=== PATIENT | female | born 1955 | race Two or more races ===

== ENCOUNTER 2023-09-08 19:07 | Inpatient (IN) | payer BC, SELFPAY ==
[2023-09-08] VITALS (7 sets, daily range): BP systolic 115–151; BP diastolic 56–99; BMI 29.1
[2023-09-08 11:13] LABS: COVID-19 Antigen Negative (Negative)
--- NOTE | 2023-09-08 12:53 | ED.GENMED ---
History of Present Illness
General
Chief Complaint: Breathing Problem
Source: patient
Exam Limitations: none
Time Seen by Provider: 09/08/23 12:24
Nursing documentation reviewed up to this point in time: agreed with
Travel History
Have you had any contact with someone who has COVID-19?: No
Do you have any symptoms of coronavirus? Fever > 100 degrees, chills, cough, shortness of breath, sore throat, loss of taste or smell, muscle aches, or headache?: No
History of Present Illness
History of Present Illness:
Patient is a 68-year-old female with past medical history of asthma who presents to the ER for evaluation. Patient started with cough several days ago and shortness of breath. She reports the cough is so bad she can barely eat or drink with it.
She has been using her albuterol nebulizers without relief. She can hear herself wheezing. She had an upper respiratory tract infection a month ago but this feels different and worse. She denies any lower extremity swelling. She denies any
history of PE DVT but does admit there is a family history of clotting disorder. She presents with a low-grade temperature here but reports she has not had fever at home for past several days. She denies any associated chest pain.
Review of Systems
Review of Systems
Allergies reviewed?: Yes
All Other Systems: ROS reviewed and negative except as documented in HPI and ROS
Constitutional: Reports no symptoms; Denies fever, fatigue or chills
EENT: Reports no symptoms
Respiratory: Reports cough and trouble breathing
Cardiac: Reports no symptoms; Denies chest pain or palpitations
ABD/GI: Reports no symptoms
: Reports no symptoms
Musculoskeletal: Reports no symptoms
Skin: Reports no symptoms
Neurological: Reports no symptoms
Hematologic/Lymphatic: Reports no symptoms
Psychiatric: Reports no symptoms
Phy Exam
General Physical Exam
General Presentation: no apparent distress
General age: appears stated age
General Skin: warm and dry
General Habitus: normal
General Mental: alert
General Hydration: dry mucous membranes
Cardiovascular Exam
Cardiovascular Exam: regular rate/rhythm, no murmur and normal peripheral pulses
Pulmonary Exam
Pulmonary Exam: no respiratory distress and other (+ audible cough , exp wheezing throughout )
Neurological Exam
Neurological Exam: alert and oriented x3
Musculoskeletal Exam
Musculoskeletal Exam: full ROM and other ( no l/e sweling )
Skin Exam
Skin Exam: normal color and warm/dry
Psychiatric Exam
Psychiatric Exam: normal mood/affect
Scores
Heart Failure Risk
Heart Failure Risk Score: Not Applicable
Course
Orders/Labs/Results
Orders:
Orders
09/08/23 10:41
Electrocardiogram (*1) Urgent
Reason for Study: Shortness of Breath
EKG- Treatment ONCE
CXR2 [CR Chest - 2 Views ] Urgent
Comment:
Reason For Exam: cough/low grade temp/sob
09/08/23 10:50
COVID-19 Antigen Urgent
Source: Nasal Swab
Influenza A+B Rapid Molecular Urgent
LUDY Source: Nasal Swab
Specimen Description:
09/08/23 12:45
Complete Blood Count/With Diff Urgent
Comprehensive Metabolic Panel Urgent
NT-proBNP Urgent
Comment: ADD
09/08/23 12:50
D-Dimer Urgent
09/08/23 12:52
Add On- LAB Urgent
Tests Added?: cardiac BNP
Albuterol Sulfate [Ventolin Nebules] 7.5 mg INH R NOW STA
Dexamethasone Sod Phosphate [Decadron] 10 mg IV NOW STA
Ipratropium Nebs [Atrovent Nebules] 1 mg INH R NOW STA
09/08/23 14:08
CT Chest Pe Study Urgent
Comment:
Reason For Exam: sob
09/08/23 14:45
Diphenhydramine [Benadryl] 50 mg IV NOW STA
Hydrocortisone Sod Succinate [Solu-Cortef] 200 mg IV NOW STA
09/08/23 17:33
Albuterol Nebs [Ventolin Nebules] 2.5 mg INH R NOW STA
Abnormal Lab Results
09/08/23 09/08/23
12:45 12:50
MCH 31.5 H pg
(27.0-31.0)
MPV 10.6 H fL
(7.4-10.4)
D-Dimer 0.78 H ug/mlFEU
(0.00-0.50)
Chloride 109 H mmol/L
(98-107)
Carbon Dioxide 21 L mmol/L
(22-30)
BUN 18 H mg/dl
(7-17)
09/08/23 12:45
09/08/23 12:45
Vital Signs
Initial and Last Documented VS:
Initial Vital Signs
Temp Pulse Resp BP Pulse Ox
100.6 F H 72 26 123/99 100
09/08/23 10:30 09/08/23 10:30 09/08/23 10:30 09/08/23 10:30 09/08/23 10:30
Last Documented Vital Signs
Temp Pulse Resp BP Pulse Ox
100.6 F H 72 26 144/85 96
09/08/23 10:30 09/08/23 10:30 09/08/23 10:30 09/08/23 16:00 09/08/23 16:15
MDM/Problems Addressed
Differential Diagnosis Includes:
Not limited to acute asthma exacerbation, URI, pneumonia, bronchitis, PE, CHF
MDM/Problems Addressed:
Patient is a 68-year-old female with history of asthma who presents to the ER complaining of shortness of breath for the past several days with cough and wheezing. Patient has used her nebs at home but continues to feel short of breath. She denies
any fevers but was found to be febrile here in the ER with a low-grade temp of 100.6. She had audible wheezing on exam. Patient very tachypneic on arrival was given an hour-long neb and steroids continues to be tachypneic. D-dimer was elevated
patient was prepped for CAT scan as she reports contrast allergy. She is negative for PE there is a branch nodular opacity within the right posterior upper lobe measuring 8 mm likely infectious or inflammatory nature consider repeat CT in 6 to 12
months. Reexam patient presents still very tachypneic conversation and ambulation will give second neb but will need admission for continued nebs steroids and observation. Patient with no history of CAD no history of congestive heart failure BNP
level 135 no obvious lower extremity swelling.
Chronic conditions affecting care:
Asthma
*Radiology
Radiology exam reviewed: radiology read reviewed
*Pulse Oximetry
Patient hypoxic: no
*Packaging Machine Supplies Distributor Interpretation
Rate: normal
Interpretation: normal
Heart Rate: 74
Rhythm: sinus
*Critical Care Note
Total Time (30-74mins, 75-104mins- exclusive of procedures): Not Applicable
ED Attending Note
-
Portions of this chart may have been created with voice recognition software.� Occasional wrong word or��sound alike� substitutions may have occurred due to the inherent limitations of voice recognition software.
Discharge Plan
Departure
Patient Disposition: Admit
Date of Disposition: 09/08/23
Time of Disposition: 17:42
Admit to: Med/Surg
Admit to doctor: Bryon
Presentation/result/management discussed w/ accepting MD/DO: Hospitalist
Patient with high blood pressure during this ER visit?: Yes
Condition: Fair
Covid-19: Not Applicable
Discharge Problem:
Asthma exacerbation, Bronchitis, Acute dyspnea
Referrals:
Jen Sapp MD [Family Provider] -
Interventions
Interventions:
*Risk Screen - Suicide Last Done: 09/08/23 12:15
*Neglect/Abuse Screening Last Done: 09/08/23 12:15
*ED COVID-19 Vaccine History Last Done: 09/08/23 10:36
ED- Cardiac Assessment Last Done: 09/08/23 12:15
ED- Pulmonary Assessment Last Done: 09/08/23 12:15
Discharge Date and Time
Print Language: ESTONIAN
[2023-09-08] MEDS: DECADRON 10 MG IV (12:58)
[2023-09-08] MEDS: VENTOLIN NEBULES 7.5 MG INH (12:58)
[2023-09-08 12:59] LABS: % Basophils 0.5 % (0-2); % Eosinophils 3.4 % (0-6); % Immature Granulocytes 0.2 % (0-0.5); % Lymphocytes 27.9 % (20.5-51.1); % Monocytes 6.3 % (1.7-9.3); % Neutrophils 61.7 % (42.2-75.2); Absolute Eosinophils 0.2 10^3/uL (0-0.7); Absolute Lymphocytes 1.6 10^3/uL (1.2-3.4); Absolute Monocytes 0.4 10^3/uL (0.1-0.6); Absolute Neutrophils 3.4 10^3/uL (1.4-6.5); Hematocrit 39.7 % (37.0-47.0); Hemoglobin 13.6 g/dL (12.0-16.0); Mean Corp Hgb Conc. 34.3 g/dL (33.0-37.0); Mean Corpuscular Hgb 31.5 pg (27.0-31.0); Mean Corpuscular Volume 91.9 fL (81.0-99.0); Mean Platelet Volume 10.6 fL (7.4-10.4); Nucleated Red Blood Cells % 0 %; Platelet Count 174 10^3/uL (130-400); Red Blood Cell Count 4.32 10^6/uL (4.20-5.40); Red Cell Dist. Width 13.4 % (11.5-14.5); White Blood Cell Count 5.6 10^3/uL (4.8-10.8)
[2023-09-08] MEDS: ATROVENT NEBULES 1 MG INH (12:59)
[2023-09-08 13:10] LABS: ALT (SGPT) 22 U/L (0-35); AST (SGOT) 24 U/L (14-36); Albumin 4.2 g/dl (3.5-5.0); Alkaline Phosphatase 119 U/L (38-126); Blood Urea Nitrogen 18 mg/dl (7-17); Calcium 9.5 mg/dl (8.4-10.2); Carbon Dioxide 21 mmol/L (22-30); Chloride 109 mmol/L (98-107); Glucose 92 mg/dl (70-99); Sodium 137 mmol/L (135-145); Total Protein 7.2 g/dl (6.3-8.2); eGFR > 60.00
[2023-09-08 13:13] LABS: D-Dimer 0.78 ug/mlFEU (0.00-0.50)
[2023-09-08 13:55] LABS: NT-proBNP 135 pg/ml
[2023-09-08] MEDS: BENADRYL 50 MG IV (15:03)
[2023-09-08] MEDS: VENTOLIN NEBULES 2.5 MG INH ×2 (17:54→20:23)
--- NOTE | 2023-09-08 17:59 | HPS.HSE ---
Family Physician
-
Family Physician: Jen Sapp
Chief Complaint
-
Cough, shortness of breath, wheezing
History of Present Illness
68-year-old female with a history of mild intermittent asthma here with complaints of cough wheezing and shortness of breath that started on Friday. Lives alone, denies any sick contacts. Does have seasonal allergies. Cough is productive of clear
phlegm.
Medical History
Past Medical History
Past Medical History: Reports Other
Additional Past Medical History:
GERD
Asthma
Nephrolithiasis
Past Surgical History: Reports Cholecystectomy
Social History
Tobacco: Non-smoker
Alcohol: Occasional
Drug: None
Personal: Single
Living: Alone
Family History
Family History: Not pertinent
Allergies / Home Medications
Allergies reflects when Allergies were last updated in Interview.
Home Medications with original date entered in Interview
Allergy/Medication List:
Allergies
Allergy/AdvReac Type Severity Reaction Status Date / Time
.local anesthetic Allergy Anaphylaxis Uncoded 09/08/23 10:39
Albuterol MDI as needed
Omeprazole 40 mg p.o. daily
Neurontin 300 mg in the morning, 400 mg in the evening
Zyrtec 10 mg daily
Review of Systems
-
History Source: Patient
A 12 point ROS was completed and negative except as noted: Yes
Respiratory: Reports Cough, Trouble Breathing and Other (Wheezing)
Physical Exam
Vital Signs
Vital Signs
Temp Pulse Resp BP Pulse Ox
100.6 F H 72 26 144/85 96
09/08/23 10:30 09/08/23 10:30 09/08/23 10:30 09/08/23 16:00 09/08/23 16:15
Physical Exam
General: Well Developed, Well Nourished, No Apparent Distress and Comfortable
HEENT: NormoCephalic, Anicteric and Moist mucous membranes
Respiratory: Wheezes and Rhonchi
Cardiac: S1/S2 and Regular Rhythm
GI: Soft, Non Tender and Non Distended
Musculoskeletal: No Clubbing, No Cyanosis and No Edema
Skin: Warm and Dry
Neuro: AO x 3
Hematologic/Lymphatic: No Lymphadenopathy
Psych: Calm
Laboratory Results
-
09/08/23 12:45
09/08/23 12:45
Laboratory Results
Total Bilirubin 1.0 mg/dl (0.2-1.3) 09/08/23 12:45
AST 24 U/L (14-36) 09/08/23 12:45
ALT 22 U/L (0-35) 09/08/23 12:45
Alkaline Phosphatase 119 U/L (38-126) 09/08/23 12:45
Impression/Plan
-
Acute asthma exacerbation -baseline mild intermittent asthma. Her last episode of asthma flare was more than a year ago. Admit to MedSurg. Continue inhalers. Continue steroids. Add Mucinex, Acapella.
Chest x-ray clear. CT chest negative for pulmonary embolism.
Low-grade fever noted. Suspect viral syndrome. White blood cell count normal. No signs or symptoms of sepsis. COVID and influenza negative.
She does not see a brass burnisher. Her primary care doctor manages the asthma.
Incidental right upper lobe lung nodule -[address] chest. Will need repeat CT in 6 to 12 months.
History of nephrolithiasis
GERD
Seasonal allergies -on Zyrtec. Recommend nasal steroids on discharge. Discussed with patient.
Full code
--- NOTE | 2023-09-08 20:08 | PTCARENOTE ---
Patient received from the ER via stretcher. AAOx3, VSS. 96% on RA. SOB with exertion. Patient stood and pivoted onto the bed due to SOB. Patient given boxed lunch, reported some nausea but no vomiting. Patient oriented to the room, call nbell is
within reach.
[2023-09-08] MEDS: PROTONIX 40 MG PO (20:58)
[2023-09-08] MEDS: MUCINEX 600 MG PO (20:58)
[2023-09-08] MEDS: ZYRTEC 10 MG PO (20:58)
[2023-09-08] MEDS: NEURONTIN 400 MG PO (21:01)
[2023-09-08] MEDS: TYLENOL 650 MG PO (21:01)
[2023-09-08] MEDS: ZOFRAN 4 MG IV (22:38)
[2023-09-09] MEDS: ProAIR HFA INHALER 2 PUFF INH (02:42)
[2023-09-09] MEDS: DECADRON 4 MG IV ×3 (05:13→21:40)
[2023-09-09] MEDS: VENTOLIN NEBULES 2.5 MG INH ×4 (07:16→19:50)
[2023-09-09 07:50] VITALS: BP 128/64
[2023-09-09] MEDS: NEURONTIN 300 MG PO (07:59)
[2023-09-09] MEDS: MUCINEX 600 MG PO ×2 (07:59→20:04)
--- NOTE | 2023-09-09 09:47 | W.PN.HOSP.TC ---
Today's Communication/Plan
-
Continue current care
Assessment / Plan
Assessment / Plan
Gen-AAOx3, NAD
HEENT-NC, AT, anicteric, clear oral mm
Neck-supple
CV-reg, no M, +S1/S2
Lungs-bilateral expiratory wheezing
Abd-soft, NT, ND
Ext-no edema
Musculoskeletal-no cyanosis, clubbing
Skin-warm and dry
Neuro-grossly non-focal
Psych-calm, cooperative
Acute asthma exacerbation -baseline mild intermittent asthma. Still with significant wheezing. Continue steroids, nebs, Acapella, Mucinex.
Incidental right upper lobe lung nodule -[address] chest. Will need repeat CT in 6 to 12 months.
History of nephrolithiasis
GERD
Seasonal allergies -on Zyrtec. Recommend nasal steroids on discharge. Discussed with patient.
Full code
Anticipated Discharge: 24 - 48 hours
Subjective/Interval History
-
Date of Service: September 09, 2023
Patient seen and examined. Complaining of cough, wheezing, shortness of breath.
Objective Data
-
Vital Signs:
Vital Signs
Temp Pulse Resp BP Pulse Ox
97.9 F 86 18 128/64 98
09/09/23 07:50 09/09/23 07:50 09/09/23 07:50 09/09/23 07:50 09/09/23 09:43
I&O
09/08/23 09/09/23 09/10/23
06:59 06:59 06:59
Intake Total 480 / 480
Balance 480 / 480
Review of Systems
-
History Source: Patient
All other systems: Reviewed and negative
[2023-09-09 10:31] LABS: Glucose - Point of Care 140 mg/dl (70-99)
--- NOTE | 2023-09-09 10:36 | CM ---
Patient seen bedside, initial assessment completed. Patient reports she lives independently in a one story home, no steps to enter. Patient denies the use of DME and reports being independent with ADLS/IADLs. Patient reports VN in the past, denies
SNF. Patient confirms PCP Jen Sapp, [facility] in [place]. Per Hospitalist note, anticipated discharge 24-48 hours. CM will continue to follow for discharge planning needs.
Plan; home no needs likely.
[2023-09-09 15:18] VITALS: BP 124/60
[2023-09-09] MEDS: ROBITUSSIN DM 10 ML PO (16:51)
[2023-09-09] MEDS: TESSALON PERLES 100 MG PO (18:41)
[2023-09-09] MEDS: NEURONTIN 400 MG PO (20:04)
[2023-09-09] MEDS: ZYRTEC 10 MG PO (20:04)
[2023-09-09] MEDS: PROTONIX 40 MG PO (20:04)
[2023-09-09 23:08] VITALS: BP 121/67
[2023-09-10] MEDS: DECADRON 4 MG IV ×3 (05:22→21:23)
[2023-09-10 07:30] VITALS: BP 148/83
[2023-09-10] MEDS: VENTOLIN NEBULES 2.5 MG INH ×4 (07:51→20:21)
[2023-09-10] MEDS: MUCINEX 600 MG PO ×2 (07:58→21:23)
[2023-09-10] MEDS: NEURONTIN 300 MG PO (07:58)
--- NOTE | 2023-09-10 10:22 | W.PN.HOSP.TC ---
Today's Communication/Plan
-
Major nasal spray
Assessment / Plan
Assessment / Plan
Gen-AAOx3, NAD
HEENT-NC, AT, anicteric, clear oral mm
Neck-supple
CV-reg, no M, +S1/S2
Lungs-bilateral expiratory wheezing
Abd-soft, NT, ND
Ext-no edema
Musculoskeletal-no cyanosis, clubbing
Skin-warm and dry
Neuro-grossly non-focal
Psych-calm, cooperative
Acute asthma exacerbation -baseline mild intermittent asthma. Still with significant wheezing. Continue steroids, nebs, Acapella, Mucinex. Add Major nasal spray for nasal congestion.
Incidental right upper lobe lung nodule -[address] chest. Will need repeat CT in 6 to 12 months.
History of nephrolithiasis
GERD
Seasonal allergies -on Zyrtec. Recommend nasal steroids on discharge. Discussed with patient.
Full code
Anticipated Discharge: > 48 hours
Subjective/Interval History
-
Date of Service: September 10, 2023
Patient seen and examined. Still with significant cough and wheezing. Episode of vomiting last night after coughing. Denies nausea currently.
Objective Data
-
Vital Signs:
Vital Signs
Temp Pulse Resp BP Pulse Ox
98 F 70 16 148/83 96
09/10/23 07:30 09/10/23 07:54 09/10/23 07:54 09/10/23 07:30 09/10/23 07:54
I&O
09/09/23 09/10/23 09/11/23
06:59 06:59 06:59
Intake Total 480 / 480 960 / 960
Balance 480 / 480 960 / 960
Review of Systems
-
History Source: Patient
All other systems: Reviewed and negative
--- NOTE | 2023-09-10 11:28 | CM ---
CM reviewed chart, per Hospitalist notes, anticipated discharge <48 hours. Patient seen bedside, reports no new concerns to CM. CM will continue to follow for discharge planning needs.
Plan; home no needs anticipated.
[2023-09-10 15:30] VITALS: BP 134/61
--- NOTE | 2023-09-10 20:39 | RESPNOTE ---
pt was c/o feeling flush and sweating post neb tx. saturation 96% on room air, pt stated throat anf chest feel fine. HR 80, RR 15 BS diminished bilat. CAT moe aware, and at bedside at this time
[2023-09-10 20:40] VITALS: BP 134/74
[2023-09-10 20:43] LABS: Glucose - Point of Care 165 mg/dl (70-99)
--- NOTE | 2023-09-10 21:09 | PTCARENOTE ---
Pt stated after neb treatment she was feeling flushed and lightheaded. Pt VSS and blood sugar 165. Pt stated she was concerned about tracking blood sugars from steroids. RN made JOURNEYMAN ELECTRICIAN aware- ordered Accucheck.
[2023-09-10] MEDS: NEURONTIN 400 MG PO (21:23)
[2023-09-10] MEDS: ZYRTEC 10 MG PO (21:23)
[2023-09-10] MEDS: PROTONIX 40 MG PO (21:25)
[2023-09-10 23:57] VITALS: BP 126/53
[2023-09-11] MEDS: DECADRON 4 MG IV ×3 (05:07→21:43)
[2023-09-11 07:26] LABS: Glucose - Point of Care 105 mg/dl (70-99)
[2023-09-11 07:30] VITALS: BP 148/84
[2023-09-11] MEDS: VENTOLIN NEBULES 2.5 MG INH ×4 (07:31→19:39)
[2023-09-11] MEDS: MUCINEX 600 MG PO ×2 (08:14→21:43)
[2023-09-11] MEDS: NEURONTIN 300 MG PO (08:14)
[2023-09-11 09:25] LABS: Urine Albumin Negative (Neg - Trace); Urine Bilirubin Negative (Negative); Urine Character Clear (Clear); Urine Color Yellow; Urine Glucose Negative (Negative); Urine Ketone Negative (Negative); Urine Leukocyte Negative (Negative); Urine Nitrite Negative (Negative); Urine Occult Blood Negative (Negative); Urine Urobilinogen Negative (Neg - 1+)
[2023-09-11 12:00] LABS: Glucose - Point of Care 127 mg/dl (70-99)
--- NOTE | 2023-09-11 12:01 | W.PN.HOSP.TC ---
Addendum entered and electronically signed by Bill Slater DO 09/11/23 15:04:
Atelectasis is a valid diagnosis
Original Note:
Today's Communication/Plan
-
Continue current care
Assessment / Plan
Assessment / Plan
Gen-AAOx3, NAD
HEENT-NC, AT, anicteric, clear oral mm
Neck-supple
CV-reg, no M, +S1/S2
Lungs-bilateral expiratory wheezing
Abd-soft, NT, ND
Ext-no edema
Musculoskeletal-no cyanosis, clubbing
Skin-warm and dry
Neuro-grossly non-focal
Psych-calm, cooperative
Acute asthma exacerbation -baseline mild intermittent asthma. Still with significant wheezing. Continue steroids, nebs, Acapella, Mucinex. Add Eva nasal spray for nasal congestion.
Incidental right upper lobe lung nodule -[address] chest. Will need repeat CT in 6 to 12 months.
History of nephrolithiasis
GERD
Seasonal allergies -on Zyrtec. Recommend nasal steroids on discharge. Discussed with patient.
Full code
Anticipated Discharge: Within 24 hours
Subjective/Interval History
-
Date of Service: September 11, 2023
Patient seen and examined. Feels slightly better compared to yesterday. Still with cough and wheezing but overall improving. No complaints.
Objective Data
-
Vital Signs:
Vital Signs
Temp Pulse Resp BP Pulse Ox
97.9 F 71 15 148/84 95
09/11/23 07:30 09/11/23 11:05 09/11/23 11:05 09/11/23 07:30 09/11/23 11:05
I&O
09/10/23 09/11/23 09/12/23
06:59 06:59 06:59
Intake Total 960 / 960 1560 / 1560
Balance 960 / 960 1560 / 1560
Review of Systems
-
History Source: Patient
All other systems: Reviewed and negative
--- NOTE | 2023-09-11 13:54 | PN.CDI ---
CDI
- -
CDI:
Physician Documentation Request
Admit Date: 09/08/23 19:07
Dear Doctor Bryon,
Please review the following and provide your response in the progress notes.
Clinical Indicators:
The diagnosis of Atelectasis was included in the signed chest CT 09/07
Additional clinical indicators in the chart include:
Chest CT: ,'Bands of atelectasis/scarring within the lingula and both lower lobes.'
Incentive Spirometry/Acapela ordered in respiratory orders
Please indicate in your progress notes if you are in agreement that the above diagnosis is valid for this patient:
____ - Atelectasis is a valid diagnosis (Please include it in your progress notes)
____ - Atelectasis is not a valid diagnosis for this patient
____ - Other
Use of terms such as suspected, likely, concern for, or probable are acceptable for a diagnosis that is being evaluated, monitored or treated as if it exists and can be coded in the inpatient setting, when documented at the time of discharge.
Thank you,
Lilly Herndon RN
CDI Specialist
[facility]
Please use your independent medical judgment in providing your response.
[2023-09-11 15:30] VITALS: BP 122/63
[2023-09-11 16:29] LABS: Glucose - Point of Care 133 mg/dl (70-99)
[2023-09-11 21:39] LABS: Glucose - Point of Care 137 mg/dl (70-99)
[2023-09-11] MEDS: NEURONTIN 400 MG PO (21:43)
[2023-09-11] MEDS: ZYRTEC 10 MG PO (21:43)
[2023-09-11] MEDS: PROTONIX 40 MG PO (21:43)
[2023-09-11] MEDS: TYLENOL 650 MG PO (21:56)
[2023-09-11 23:06] VITALS: BP 138/74
[2023-09-12] MEDS: DECADRON 4 MG IV ×2 (05:17→12:59)
[2023-09-12 07:16] LABS: Glucose - Point of Care 114 mg/dl (70-99)
[2023-09-12] MEDS: VENTOLIN NEBULES 2.5 MG INH ×2 (07:52→11:46)
[2023-09-12] MEDS: NEURONTIN 300 MG PO (09:05)
[2023-09-12] MEDS: MUCINEX 600 MG PO (09:06)
[2023-09-12 09:12] VITALS: BP 130/83
[2023-09-12 10:26] VITALS: BP 134/69; PULSE 74; O2SAT 98
--- NOTE | 2023-09-12 10:44 | PTOTSP ---
Patient demonstrates safe and independent mobility, no skilled physical therapy needs at this time.
--- NOTE | 2023-09-12 10:46 | W.PN.HOSP.TC ---
Today's Communication/Plan
-
Discharge
Assessment / Plan
Assessment / Plan
Gen-AAOx3, NAD
HEENT-NC, AT, anicteric, clear oral mm
Neck-supple
CV-reg, no M, +S1/S2
Lungs-bilateral expiratory wheezing
Abd-soft, NT, ND
Ext-no edema
Musculoskeletal-no cyanosis, clubbing
Skin-warm and dry
Neuro-grossly non-focal
Psych-calm, cooperative
Acute asthma exacerbation -baseline mild intermittent asthma. Wheezing is improving. Continue steroids, nebs, Acapella, Mucinex. Add [place] nasal spray for nasal congestion. Still with cough and I explained to patient that coughing may take weeks
to months to improve.
Will add Advair on discharge. Recommend outpatient follow-up with PCP and pulmonary. Discussed with patient.
She is comfortable going home today.
Incidental right upper lobe lung nodule -[address] chest. Will need repeat CT in 6 to 12 months. Follow-up with pulmonary. Discussed with patient.
History of nephrolithiasis
GERD
Seasonal allergies -on Zyrtec. Recommend nasal steroids on discharge. Discussed with patient.
Full code
Dispo -medically stable for discharge home today. Outpatient follow-up.
32 minutes spent in discharge process.
Anticipated Discharge: Today
Subjective/Interval History
-
Date of Service: September 12, 2023
Patient seen and examined. Feeling slightly better. Still with cough.
Objective Data
-
Vital Signs:
Vital Signs
Temp Pulse Resp BP Pulse Ox
98.0 F 70 18 130/83 95
09/12/23 09:12 09/12/23 09:12 09/12/23 09:12 09/12/23 09:12 09/12/23 09:12
I&O
09/11/23 09/12/23 09/13/23
06:59 06:59 06:59
Intake Total 1560 / 1560 1140 / 1140
Balance 1560 / 1560 1140 / 1140
Review of Systems
-
History Source: Patient
All other systems: Reviewed and negative
--- NOTE | 2023-09-12 10:57 | W.DS.TRANS ---
DC Summary - Alarm Installation Technician
-
Discharge Instructions:
Discharge Diagnosis/Procedures Acute asthma exacerbation, right upper lobe
pulmonary nodule
Diet Regular
Activity As tolerated
Driving Restrictions As prior to admission
Bathing Restrictions None
Instructions:
Stand-Alone Forms:
Changes to Home Medications: No
Discharge Medications:
DC Medications w/original date entered in [employer]
acetaminophen 500 mg tablet 1,000 mg PO HS Pain 09/08/23
cetirizine 10 mg tablet (Zyrtec) 10 mg PO QPM Allergies 09/08/23
gabapentin 300 mg capsule 300 mg PO DAILY Pain 09/08/23
gabapentin 400 mg capsule 400 mg PO HS Pain 09/08/23
ibuprofen 200 mg capsule 600 mg PO HS Pain 09/08/23
omeprazole 40 mg capsule,delayed release 40 mg PO QPM Gastrointestinal Issue 09/08/23
albuterol sulfate 2.5 mg/3 mL (0.083 %) solution for nebulization 2.5 mg (3 mL) inhalation Q4H PRN shortness of breath or wheezing #90 mL 09/12/23
albuterol sulfate 90 mcg/actuation aerosol inhaler 2 puff inhalation R Q4HPRN PRN SOB #8.5 grams 09/12/23
fluticasone 100 mcg-salmeterol 50 mcg/dose blistr powdr for inhalation (Advair Diskus) 1 inh inhalation BID #60 ea 09/12/23
guaifenesin 600 mg tablet, extended release 12 hr 600 mg PO Q12 #0 tabs 09/12/23
prednisone 10 mg tablet 10 mg PO DIRECTED #45 tabs 09/12/23
Home Medication Changes
Pending Results: No
--- NOTE | 2023-09-12 11:21 | CM ---
Met with patient at bedside
IMM benefit explained; form signed @ [id number]
Plan: discharge to home; no skilled PT needed; niece will provide transport home
--- NOTE | 2023-09-12 11:29 | PTCARENOTE ---
Reviewed discharge instructions with patient. Patient verbalizes understanding of all instructions including medication and follow up appointments needed. Patient will be sent home with a spacer for respiratory treatments. Peripheral IV removed.
Denies questions at this time.
[2023-09-12 12:19] LABS: Glucose - Point of Care 150 mg/dl (70-99)
== END 2023-09-12 15:18 | disposition home or self-care (01) | DRG 202 ==
LOC: 4 EAST ACU 19:07
PROVIDERS: Emergency Medicine; Nurse Practitioner; Nurse Practitioner Family; ADMITTING PHYSICIAN Hospitalist; EMERGENCY PHYSICIAN Emergency Medicine; FAMILY PHYSICIAN Internal Medicine
DX: J45.21 Mild intermittent asthma with (acute) exacerbation (principal); J98.11 Atelectasis; Z11.52 Encounter for screening for COVID-19; J20.9 Acute bronchitis, unspecified; K21.9 Gastro-esophageal reflux disease without esophagitis; R91.1 Solitary pulmonary nodule; B34.9 Viral infection, unspecified
CPT/HCPCS: 71046; 71275; 80053; 81003; 82962; 83880; 85025; 85379; 87502; 87811; 93005; 94640; 96374; 96375; 97162; 99285; Q9967

== ENCOUNTER 2024-03-15 13:51 | Emergency (ER) | payer BC, MEDICARE, SELFPAY ==
[2024-03-15 13:54] VITALS: BP 115/74
[2024-03-15 14:23] LABS: % Basophils 0.8 % (0-2); % Eosinophils 1.5 % (0-6); % Lymphocytes 36.1 % (20.5-51.1); % Monocytes 11.9 % (1.7-9.3); % Neutrophils 49.7 % (42.2-75.2); Absolute Eosinophils 0.1 10^3/uL (0-0.7); Absolute Lymphocytes 1.4 10^3/uL (1.2-3.4); Absolute Monocytes 0.5 10^3/uL (0.1-0.6); Absolute Neutrophils 1.9 10^3/uL (1.4-6.5); Hematocrit 41.8 % (37.0-47.0); Hemoglobin 14.6 g/dL (12.0-16.0); Mean Corp Hgb Conc. 34.9 g/dL (33.0-37.0); Mean Corpuscular Hgb 31.9 pg (27.0-31.0); Mean Corpuscular Volume 91.3 fL (81.0-99.0); Mean Platelet Volume 10.4 fL (7.4-10.4); Nucleated Red Blood Cells % 0 %; Platelet Count 194 10^3/uL (130-400); Red Blood Cell Count 4.58 10^6/uL (4.20-5.40); Red Cell Dist. Width 13.7 % (11.5-14.5); White Blood Cell Count 3.9 10^3/uL (4.8-10.8)
[2024-03-15 14:31] LABS: COVID-19 Antigen Positive (Negative)
[2024-03-15 14:37] LABS: ALT (SGPT) 25 U/L (0-35); AST (SGOT) 27 U/L (14-36); Albumin 4.4 g/dl (3.5-5.0); Alkaline Phosphatase 97 U/L (38-126); Blood Urea Nitrogen 29 mg/dl (7-17); Calcium 9.7 mg/dl (8.4-10.2); Carbon Dioxide 23 mmol/L (22-30); Chloride 105 mmol/L (98-107); Glucose 113 mg/dl (70-99); Potassium 3.8 mmol/L (3.5-5.1); Sodium 143 mmol/L (135-145); Total Bilirubin 0.7 mg/dl (0.2-1.3); Total Protein 7.2 g/dl (6.3-8.2); eGFR 40.73
[2024-03-15 16:23] VITALS: BP 143/88
[2024-03-15] MEDS: VENTOLIN NEBULES 2.5 MG INH (18:01)
--- NOTE | 2024-03-15 18:05 | ED.GENMED ---
History of Present Illness
General
Chief Complaint: Breathing Problem
Source: patient
Time Seen by Provider: 03/15/24 17:12
History of Present Illness
History of Present Illness:
69-year-old female with past medical history of asthma presenting to the emergency department for evaluation of cold and flulike symptoms that began Friday including cough, body aches and generally feeling unwell. Patient denies any fevers, no
known sick contacts, recent travel or recent antibiotics. Has a history of asthma and feels as if her asthma is flaring from the suspected infection. No other concerns presently.
Past History
Past History
ED Past Medical History: Asthma and GERD
ED Past Surgical History: Cholecystectomy and Urological
Social History
Tobacco: Non-smoker
Alcohol: None
Drug: None
Living: with family
Review of Systems
Review of Systems
All Other Systems: ROS reviewed and negative except as documented in HPI and ROS
Phy Exam
Physical Exam
Physical Exam:
GENERAL: Alert , in no apparent distress, intermittent nonproductive cough noted
EYE: conjunctiva clear
Head: Normocephalic atraumatic
NECK: Supple,
ENT: mmm.
LUNGS: no acute respiratory distress
NEUROLOGICAL: Alert and oriented
SKIN: Warm and dry, skin intact.
MUSCULOSKELETAL: well perfused.
PSYCH: Normal and appropriate interaction.
Scores
Heart Failure Risk
Heart Failure Risk Score: Not Applicable
Heart Score for Chest Pain Patients
STEMI patient?: Not applicable
Withdrawal Assessment of Alcohol
Withdrawal Assessment Completed?: Not applicable
Course
Orders/Labs/Results
Orders:
Orders
03/15/24 14:03
Electrocardiogram (*1) Urgent
Reason for Study: Shortness of Breath
EKG- Treatment ONCE
CXR2 [CR Chest - 2 Views ] Urgent
Comment:
Reason For Exam: sob
03/15/24 14:11
CMP [Comprehensive Metabolic Panel] Urgent
COVID-19 Antigen Urgent
Source: Nasal Swab
Complete Blood Count/With Diff Urgent
03/15/24 17:18
0.9% Sodium Chloride 1000 ml [Nss] 1,000 ml IV BOLUS
03/15/24 17:57
Ipratropium/Albuterol Sulfate [Duoneb] 3 ml .ROUTE .STK-MED ONE
03/15/24 17:59
Albuterol Nebs [Ventolin Nebules] 2.5 mg INH R NOW STA
Abnormal Lab Results
03/15/24
14:11
WBC 3.9 L 10^3/uL
(4.8-10.8)
MCH 31.9 H pg
(27.0-31.0)
Monocytes % 11.9 H %
(1.7-9.3)
BUN 29 H mg/dl
(7-17)
Creatinine 1.4 H mg/dL
(0.6-1.0)
Glucose 113 H mg/dl
(70-99)
SARS-CoV-2 Antigen Positive A
(Negative)
03/15/24 14:11
03/15/24 14:11
Vital Signs
Initial and Last Documented VS:
Initial Vital Signs
Temp Pulse Resp BP Pulse Ox
98.0 F 73 24 115/74 100
03/15/24 13:54 03/15/24 13:54 03/15/24 13:54 03/15/24 13:54 03/15/24 13:54
Last Documented Vital Signs
Temp Pulse Resp BP Pulse Ox
98.0 F 86 22 140/88 94
03/15/24 13:54 03/15/24 18:47 03/15/24 18:47 03/15/24 18:47 03/15/24 18:47
MDM/Problems Addressed
Differential Diagnosis Includes:
COVID, flu, viral syndrome, pneumonia
MDM/Problems Addressed:
69-year-old female presenting to the emergency department for evaluation of persistent cough and flulike symptoms over the last few days. In triage patient had blood work, chest x-ray and COVID testing ordered. COVID test did come back positive.
Patient's chest x-ray without any signs of pneumonia. She is otherwise hemodynamically stable and without any need for O2 requirements. Patient did have mild acute kidney injury on her labs which is likely from dehydration. Will treat with
fluids. Patient is also requesting a nebulizer treatment as she was unable to take this at home. Discharge home. Will also prescribe patient Paxlovid. Aware of return precautions.
*Radiology
Radiology exam reviewed: radiology read reviewed
*Pulse Oximetry
Patient hypoxic: no
*Critical Care Note
Total Time (30-74mins, 75-104mins- exclusive of procedures): Not Applicable
Patient Management
Social determinants of health affecting care: Strong social support
ED Attending Note
-
Portions of this chart may have been created with voice recognition software.� Occasional wrong word or��sound alike� substitutions may have occurred due to the inherent limitations of voice recognition software.
Discharge Plan
Departure
Patient Disposition: Home (Routine Discharge)
Date of Disposition: 03/15/24
Time of Disposition: 18:06
Patient with high blood pressure during this ER visit?: Yes
Discharge Problem:
COVID-19
Instructions: COVID-19 ED
Prescriptions:
New
Paxlovid 150-100 mg tablets,dose pack
See Rx Instructions .ROUTE .COMPLEX Qty: 20 0RF
Rx Instructions:
orally per package directions
albuterol sulfate 2.5 mg /3 mL (0.083 %) solution for nebulization
2.5 mg inhalation QID PRN (Reason: shortness of breath or wheezing) Qty: 90 0RF
No Action
cetirizine [Zyrtec] 10 mg Tablet
10 mg PO QPM
ibuprofen 200 mg Capsule
600 mg PO HS
gabapentin 400 mg capsule
400 mg PO HS
omeprazole 40 mg capsule,delayed release(DR/EC)
40 mg PO QPM
acetaminophen 500 mg Tablet
1,000 mg PO HS
gabapentin 300 mg capsule
300 mg PO DAILY
albuterol sulfate 90 mcg/actuation Hfa Aerosol Inhaler
2 puff inhalation R Q4HPRN PRN (Reason: SOB) Qty: 8.5 0RF
guaifenesin 600 mg Tablet Extended Release 12hr
600 mg PO Q12 Qty: 0 0RF
prednisone 10 mg tablet
10 mg PO DIRECTED Qty: 45 0RF
Rx Instructions:
5 tabs daily x 3 days, 4 tabs daily x 3 days, 3 tabs daily x 3 days, 2 tabs daily x 3 days, 1 tab daily x 3 days.
fluticasone propion-salmeterol [Advair Diskus] 100-50 mcg/dose blister with device
1 inh inhalation BID Qty: 60 0RF
albuterol sulfate 2.5 mg /3 mL (0.083 %) solution for nebulization
2.5 mg inhalation Q4H PRN (Reason: shortness of breath or wheezing) Qty: 90 0RF
Interventions
Interventions:
*Risk Screen - Suicide Last Done: 03/15/24 18:46
*General Assessment Last Done: 03/15/24 18:46
*Neglect/Abuse Screening Last Done: 03/15/24 18:46
*ED COVID-19 Vaccine History Last Done: 03/15/24 18:46
ED- Cardiac Assessment Last Done: 03/15/24 18:42
ED- Pulmonary Assessment Last Done: 03/15/24 18:42
Discharge Date and Time
Print Language: BAHRAINI
[2024-03-15] MEDS: NSS 1000 IV (18:40)
[2024-03-15 18:47] VITALS: BP 140/88
== END 2024-03-15 20:43 | disposition home or self-care (01) ==
LOC: EMR 13:51
PROVIDERS: Student in an Organized Health Care Education/Training Program; EMERGENCY PHYSICIAN Emergency Medicine; FAMILY PHYSICIAN Internal Medicine
DX: U07.1 COVID-19 (principal); R03.0 Elevated blood-pressure reading, without diagnosis of hypertension; Z11.52 Encounter for screening for COVID-19; J45.909 Unspecified asthma, uncomplicated; K21.9 Gastro-esophageal reflux disease without esophagitis; Z90.49 Acquired absence of other specified parts of digestive tract; Z88.4 Allergy status to anesthetic agent
CPT/HCPCS: 99284; 96360; 94640; 71046; 80053; 85025; 87811; 93005

== ENCOUNTER → 2024-03-26 07:17 | Outpatient (REF) | payer BC, MEDICARE, SELFPAY | LOC: HWRAD 07:17 | PROVIDERS: ATTENDING PHYSICIAN Internal Medicine Critical Care Medicine; FAMILY PHYSICIAN Internal Medicine | DX: R91.8 Other nonspecific abnormal finding of lung field (principal) | CPT/HCPCS: 71250 ==

== ENCOUNTER 2024-06-09 15:55 | Inpatient (IN) | payer BC, MEDICARE, SELFPAY ==
[2024-06-08 15:19] VITALS: BP 146/73
[2024-06-08 15:44] LABS: % Basophils 0.3 % (0-2); % Eosinophils 0.9 % (0-6); % Immature Granulocytes 0.1 % (0-0.5); % Lymphocytes 14.3 % (20.5-51.1); % Monocytes 5.1 % (1.7-9.3); % Neutrophils 79.3 % (42.2-75.2); Absolute Eosinophils 0.1 10^3/uL (0-0.7); Absolute Monocytes 0.4 10^3/uL (0.1-0.6); Absolute Neutrophils 5.6 10^3/uL (1.4-6.5); Hematocrit 41.7 % (37.0-47.0); Hemoglobin 13.9 g/dL (12.0-16.0); Mean Corp Hgb Conc. 33.3 g/dL (33.0-37.0); Mean Corpuscular Hgb 31.4 pg (27.0-31.0); Mean Corpuscular Volume 94.1 fL (81.0-99.0); Mean Platelet Volume 9.8 fL (7.4-10.4); Nucleated Red Blood Cells % 0 %; Platelet Count 204 10^3/uL (130-400); Red Blood Cell Count 4.43 10^6/uL (4.20-5.40)
[2024-06-08 15:55] LABS: COVID-19 Antigen Negative (Negative)
[2024-06-08 15:57] LABS: ALT (SGPT) 24 U/L (0-35); AST (SGOT) 25 U/L (14-36); Albumin 4.5 g/dl (3.5-5.0); Alkaline Phosphatase 114 U/L (38-126); Blood Urea Nitrogen 16 mg/dl (7-17); Calcium 9.6 mg/dl (8.4-10.2); Carbon Dioxide 24 mmol/L (22-30); Chloride 104 mmol/L (98-107); Glucose 101 mg/dl (70-99); Sodium 140 mmol/L (135-145); Total Bilirubin 0.9 mg/dl (0.2-1.3); Total Protein 7.4 g/dl (6.3-8.2); eGFR > 60.00
--- NOTE | 2024-06-08 20:20 | ED.GENMED ---
History of Present Illness
General
Chief Complaint: Breathing Problem
Source: patient
Exam Limitations: none
Time Seen by Provider: 06/08/24 20:13
History of Present Illness
History of Present Illness:
Cough shortness of breath for 4 to 5 days. Has been having some vomiting with coughing today had vomiting on her own. Some shortness of breath. Diagnosed with pneumonia yesterday at urgent care. Low-grade fever. Symptoms are moderate in nature
Past History
Past History
ED Past Medical History: Asthma and GERD
ED Past Surgical History: Cholecystectomy and Urological
Social History
Tobacco: Non-smoker
Alcohol: None
Drug: None
Living: with family
Review of Systems
Review of Systems
All Other Systems: Not applicable
Constitutional: Reports fever
Respiratory: Reports cough; Denies hemoptysis
Cardiac: Reports no symptoms
Phy Exam
Physical Exam
Physical Exam:
GENERAL: Alert and oriented in no apparent distress. But holding a vomit bag
EYE: Orbits normal.
NECK: Supple, no significant adenopathy.
ENT: Pharynx without erythema
CARDIAC: Regular rate and rhythm without any obvious murmurs.
LUNGS: Coarse cough. Diffuse expiratory wheezing. Mild tachypnea.
ABDOMEN: Soft, without focal tenderness or distention
NEUROLOGICAL: Alert and oriented , grossly non-focal
SKIN: Warm and dry, no rash or lesion, no discoloration, skin intact.
MUSCULOSKELETAL: No edema,no deformity.Good color
PSYCH: Normal and appropriate interaction.
Scores
Heart Failure Risk
Heart Failure Risk Score: Not Applicable
Course
Orders/Labs/Results
Orders:
Orders
06/08/24 Dinner
Regular
At Your Request: Full Participation
06/08/24 15:24
COVID-19 Antigen Urgent
Source: Nasal Swab
Complete Blood Count/With Diff Urgent
Comprehensive Metabolic Panel Urgent
Influenza A+B Rapid Molecular Urgent
LUDY Source: Nasal Swab
Specimen Description:
06/08/24 15:36
Chest [CR Chest - 2 Views ] Urgent
Comment:
Reason For Exam: sob, cough
06/08/24 20:19
0.9% Sodium Chloride 1000 ml [Nss] 1,000 ml IV BOLUS
Albuterol Sulfate [Ventolin Nebules] 7.5 mg INH R NOW STA
Dexamethasone Sod Phosphate [Decadron] 8 mg IV NOW STA
Ipratropium/Albuterol Sulfate [Duoneb] 3 ml INH R NOW STA
Ondansetron Injectable [Zofran] 4 mg IV NOW STA
Pulse Ox/cont/shift [RESP] Stat
Quantity: 1
06/08/24 21:16
Albuterol Sulfate [Ventolin Nebules] 2.5 mg .ROUTE .STK-MED ONE
06/08/24 22:23
Azithromycin [Zithromax] 500 mg PO NOW STA
06/08/24 22:24
Admit/Transfer Patient As Directed
Co-Sign Provider:
Level of Care: Observation services
Assign to:: Medical/Surgical
Physician / Group: vega lopez
Diagnosis: acute asthmatic bronchitis, cough induced vomiting
Code Status As Directed
Resuscitation Status: Full Code
06/08/24 22:27
PRN Pain Medication Management As Directed
May give lesser potent ordered pain med per pt: Yes
preference::
Protocol:: Medication orders for pain may be administered in a
manner that supports deferring to patient preference
when the pt is:
- Requesting an ordered lesser potent pain medication.
Least to most potent pain medications are defined
as: acetaminophen < NSAID < tramadol < opioids
(morphine, oxycodone, hydromorphone).
- Requesting a lesser dose of the same medication IF
ORDERED.
- Requesting a less intrusive route of administration
if both routes are prescribed by the provider (PO <
IV).
06/08/24 22:29
EKG [Electrocardiogram (*1)] Urgent
Reason for Study: QTc Monitoring
06/08/24 23:00
Flush (0.9% Sodium Chloride) [Flush (Nss)] See Dose Instructions IV PER PROTOCOL
Ibuprofen [Motrin] 600 mg PO QPM
06/08/24 23:31
0.9% Sodium Chloride 1000 ml [Nss] 1,000 ml IV 80 mls/hr
Acetaminophen [Tylenol] 1,000 mg PO QPM
Cetirizine HCl [Zyrtec] 10 mg PO QPM
Gabapentin [Neurontin] 300 mg PO DAILYPRN PRN
Gabapentin [Neurontin] 400 mg PO QPM
Ipratropium/Albuterol Sulfate [Duoneb] 3 ml INH R Q4HPRN PRN
Ondansetron Injectable [Zofran] 4 mg IV Q6HPRN PRN
06/08/24 23:31
Activity As Directed
Activity Level: As Tolerated
Pneumatic Compression Sleeves As Directed
Type: Knee high
Vital Signs As Directed
Frequency: Per unit guidelines
Pulse Ox/spot Check [RESP] Routine
Quantity: 1
DX Deep Vein Thrombosis Video Routine
06/09/24 04:00
Dexamethasone Sod Phosphate [Decadron] 4 mg IV Q8H
06/09/24 06:52
Complete Blood Count/With Diff IN AM
Comprehensive Metabolic Panel IN AM
06/09/24 08:00
Azithromycin [Zithromax] 250 mg PO DAILY
Guaifenesin [Mucinex] 600 mg PO Q12
Ipratropium/Albuterol Sulfate [Duoneb] 3 ml INH R QID
06/09/24 14:02
Change in Level of Care [Level of Care Change] As Directed
Level of Care: Inpatient admission
Reason for Hospitalization: acute bronchitis, wheezing, requiring IV steroids
Expected length of stay greater than two midnights?: Yes
ELOS- Estimated Length of Stay in days: 3
I certify the patient meets the requirements for IP care: Yes
06/09/24 18:00
Pantoprazole [Protonix] 40 mg PO QPM
06/10/24 06:55
Basic Metabolic Panel IN AM
Complete Blood Count/No Diff IN AM
Abnormal Lab Results
06/08/24 06/09/24
1524 06:52
RBC 3.76 L 10^6/uL
(4.20-5.40)
Hgb 11.8 L g/dL
(12.0-16.0)
Hct 35.2 L %
(37.0-47.0)
MCH 31.4 H pg 31.4 H pg
(27.0-31.0) (27.0-31.0)
Absolute Neuts (auto) 7.1 H 10^3/uL
(1.4-6.5)
Absolute Lymphs (auto) 1.0 L 10^3/uL 0.5 L 10^3/uL
(1.2-3.4) (1.2-3.4)
Neutrophils % 79.3 H % 91.8 H %
(42.2-75.2) (42.2-75.2)
Lymphocytes % 14.3 L % 6.2 L %
(20.5-51.1) (20.5-51.1)
Monocytes % 1.2 L %
(1.7-9.3)
Carbon Dioxide 19 L mmol/L
(22-30)
BUN 18 H mg/dl
(7-17)
Glucose 101 H mg/dl 164 H mg/dl
(70-99) (70-99)
Total Protein 6.1 L g/dl
(6.3-8.2)
06/09/24 06:52
06/09/24 06:52
Vital Signs
Initial and Last Documented VS:
Initial Vital Signs
Temp
98.1 F
06/08/24 15:17
Last Documented Vital Signs
Temp Pulse Resp BP Pulse Ox
98.2 F 74 18 124/62 96
06/11/24 15:15 06/11/24 15:15 06/11/24 15:15 06/11/24 15:15 06/11/24 15:15
MDM/Problems Addressed
Differential Diagnosis Includes:
Asthmatic bronchitis with expiratory wheezing and vomiting. Fluids nausea meds steroids nebulizers. Reevaluate
*Radiology
Radiology exam reviewed: preliminary read by ED provider (Negative)
*Pulse Oximetry
Patient hypoxic: no
*Critical Care Note
Total Time (30-74mins, 75-104mins- exclusive of procedures): Not Applicable
Data Reviewed
Review of Other/Old Records Reveals: Labs, Records, Radiology Studies, Testing and Discharge Summary
Update Note
Update Note:
Patient currently on the nebulizer. Still wheezing. Still feels moderately ill. Warrants inpatient management
ED Attending Note
-
Portions of this chart may have been created with voice recognition software.� Occasional wrong word or��sound alike� substitutions may have occurred due to the inherent limitations of voice recognition software.
Discharge Plan
Departure
Patient Disposition: Admit
Date of Disposition: 06/08/24
Time of Disposition: 21:43
Presentation/result/management discussed w/ accepting MD/DO: Hospitalist
Discharge Problem:
Asthma/URI, Recurrent vomiting/dehydration
Interventions
Interventions:
*Risk Screen - Suicide Last Done: 06/08/24 21:00
*General Assessment Last Done: 06/08/24 21:00
*Neglect/Abuse Screening Last Done: 06/08/24 21:00
ED- Fall Risk Assessment Last Done: 06/08/24 21:00
*ED COVID-19 Vaccine History Last Done: 06/08/24 21:00
*Nursing Disposition Last Done: 06/08/24 23:45
ED- Cardiac Assessment Last Done: 06/08/24 21:00
ED- Pulmonary Assessment Last Done: 06/08/24 21:00
Discharge Date and Time
Discharge Date/Time: 06/08/24 23:45
[2024-06-08 20:45] VITALS: BP 147/83
[2024-06-08] MEDS: NSS 1000 IV (21:09)
[2024-06-08] MEDS: ZOFRAN 4 MG IV (21:09)
[2024-06-08] MEDS: DECADRON 8 MG IV (21:10)
[2024-06-08] MEDS: DUONEB 3 ML INH (21:10)
[2024-06-08] MEDS: VENTOLIN NEBULES 7.5 MG INH (21:11)
--- NOTE | 2024-06-08 21:49 | HPS.HSE ---
Addendum entered and electronically signed by Ernst Martinez DO 06/08/24 23:18:
Patient seen and examined independently. Agree with findings and plan as set forth by LOGAN Caruso.
Patient is a 69y F with PMH significant for asthma who presents to [facility] complaining of 4-5 days of cough, wheezing and SOB. Multiple known sick contacts. Presented to Urgent Care today and was advised she should come to the ED for further
evaluation.
Ass:
Asthmatic Bronchitis
URI - Likely viral
DDD
Plan:
Observe overnight for further evaluation and treatment.
COVID and influenza negative in the ED.
IV steroids for asthma / wheezing.
Azithromycin.
Supportive care with nebs, mucolytics, etc.
Follow for clinical improvement.
Original Note:
Family Physician
-
Family Physician:
Chief Complaint
-
Shortness of breath, cough, vomiting bile
History of Present Illness
69-year-old female complaining of 4 to 5 days with cough , wheezing shortness of breath. Today she reports she was coughing to the point of vomiting green bile. She was seen yesterday 06/07/2024 at urgent care and told she had pneumonia. She
states she was with her friend on [place] and the friends 2 grandchildren she is raising one of the children has cough with wheezing is on Augmentin and her friend has also cough with wheezing is on Zithromax and steroid pack. She denies
headache, fever, chills, chest pain, palpitations, abdominal pain, diarrhea, urinary symptoms.
She has past medical history of asthma, GERD, COVID-19 infection 03/15/2024, chronic cervical herniated disc pain, thoracic outlet syndrome
Medical History
Past Medical History
Past Medical History: Reports Other
Additional Past Medical History:
GERD
Asthma
Nephrolithiasis
COVID-19 infection March 2024
Past Surgical History: Reports Cholecystectomy
Social History
Tobacco: Non-smoker
Alcohol: Occasional
Drug: None
Personal: Single
Living: Alone
Employment: Retired
Family History
Family History: Other (Mother colon cancer reaction to chemo, father lungs [place] heavy smoker)
Allergies / Home Medications
Allergies reflects when Allergies were last updated in [email or web address].
Home Medications with original date entered in [email or web address]
Allergy/Medication List:
Allergies
Allergy/AdvReac Type Severity Reaction Status Date / Time
.local anesthetic Allergy Anaphylaxis Uncoded 03/15/24 13:56
Home Medications
acetaminophen 500 mg tablet 1,000 mg PO QPM Pain 09/08/23
cetirizine 10 mg tablet (Zyrtec) 10 mg PO QPM Allergies 09/08/23
gabapentin 300 mg capsule 300 mg PO DAILYPRN PRN neuropathy 09/08/23
gabapentin 400 mg capsule 400 mg PO QPM Pain 09/08/23
ibuprofen 200 mg capsule 600 mg PO QPM Pain 09/08/23
omeprazole 40 mg capsule,delayed release 40 mg PO QPM Gastrointestinal Issue 09/08/23
albuterol sulfate 90 mcg/actuation aerosol inhaler 2 puff inhalation R Q4HPRN PRN SOB #8.5 grams 09/12/23
albuterol sulfate 2.5 mg/3 mL (0.083 %) solution for nebulization 2.5 mg inhalation Q4HPRN PRN shortness of breath or wheezing 06/08/24
ondansetron 4 mg disintegrating tablet 4 mg PO DAILYPRN PRN nausea 06/08/24
Review of Systems
-
History Source: Patient
A 12 point ROS was completed and negative except as noted: Yes
Constitutional: Denies Fever or Fatigue
EENT: Denies Sore Throat or Runny Nose
Respiratory: Reports Cough and Trouble Breathing (Wheezing)
Cardiac: Denies Chest Pain, Diaphoresis or Palpitations
Abdomen/GI: Reports Nausea and Vomiting (Green bile); Denies Abdominal Pain, Diarrhea, Constipated, Bloody Stools or Black Stools
: Denies Dysuria, Frequency, Flank Pain or Difficulty Voiding
Musculoskeletal: Denies Joint Pain, Joint Swelling or Edema
Skin: Denies Itching or Rash
Neurological: Denies Dizzy, Headache or Weakness
Endocrine: Reports No Symptoms
Hematologic/Lymphatic: Reports No Symptoms
Psych: Reports Calm
Physical Exam
Vital Signs
Vital Signs
Temp Pulse Resp BP Pulse Ox
98.5 F 84 22 146/73 98
06/08/24 15:19 06/08/24 15:19 06/08/24 15:19 06/08/24 15:19 06/08/24 15:19
Physical Exam
General: Conversant; No Pain, Fever or Chills
HEENT: NormoCephalic, Anicteric, Moist mucous membranes and PERRLA
Respiratory: Wheezes (Throughout both lung vazquez); No Rales or Rhonchi
Cardiac: S1/S2 and Regular Rhythm; No Murmur, Rub, Gallop or Peripheral Edema
Breast: Deferred by me
GI: Soft, Non Tender, Non Distended and Normal Bowel Sounds
Genito-urinary: Deferred by me
Musculoskeletal: No Clubbing and No Edema
Skin: Warm and Dry; No Rash or Jaundice
Neuro: AO x 3, No Motor Deficits, Nonfocal/grossly intact, Cranial Nerves Intact and No Sensory Deficits; No Slurred Speech, Facial Droop, Tremors or Sedated
Psych: Calm
Laboratory Results
-
06/08/24 15:24
06/08/24 15:24
Laboratory Results
Total Bilirubin 0.9 mg/dl (0.2-1.3) 06/08/24 15:24
AST 25 U/L (14-36) 06/08/24 15:24
ALT 24 U/L (0-35) 06/08/24 15:24
Alkaline Phosphatase 114 U/L (38-126) 06/08/24 15:24
Impression/Plan
-
Observation MedSurg
#Asthmatic bronchitis
98% RA, 98.5, HR 84, 146/73-up to date with Tdap
Allergic to influenza vaccine�patient reports
COVID/flu negative
-Decadron 8 mg given in ER, Decadron 4 every 8 hours
-Zyrtec 10 mg every afternoon
-Start on Z-David 500 mg now then 250 mg daily x 4 days
-Continue DuoNebs scheduled and as needed
CXR: No evidence for pneumonia.
Mild scarring/subsegmental atelectasis in both lower lungs,
mild chronic elevation of right hemidiaphragm
#Cough induced vomiting bile
-Zofran as needed will check QTc on EKG
#GERD
-Continue omeprazole
#COVID-19 infection 03/15/2024
-Treated with Paxlovid
#Cervical herniated disks with chronic neck pain
#Thoracic outlet syndrome reported
Continue gabapentin at 1000 mg every afternoon, Tylenol 1000 mg every afternoon
DVT prophylaxis
SCDs
Full code
[2024-06-08 21:52] VITALS: BMI 28.2
[2024-06-08] MEDS: ZITHROMAX 500 MG PO (23:05)
[2024-06-08 23:31] VITALS: BP 135/79; BMI 28.4
[2024-06-09] MEDS: NEURONTIN 400 MG PO ×2 (00:12→18:06)
[2024-06-09] MEDS: ZYRTEC 10 MG PO ×2 (00:12→18:06)
[2024-06-09] MEDS: MOTRIN 600 MG PO ×2 (00:12→18:06)
[2024-06-09] MEDS: TYLENOL 1000 MG PO ×2 (00:12→18:06)
[2024-06-09] MEDS: NSS 1000 IV (00:13)
[2024-06-09] MEDS: DUONEB 3 ML INH ×6 (01:28→23:10)
[2024-06-09] MEDS: DECADRON 4 MG IV ×3 (03:39→20:24)
[2024-06-09 07:20] LABS: Hematocrit 35.2 % (37.0-47.0); Hemoglobin 11.8 g/dL (12.0-16.0); Mean Corp Hgb Conc. 33.5 g/dL (33.0-37.0); Mean Corpuscular Hgb 31.4 pg (27.0-31.0); Mean Corpuscular Volume 93.6 fL (81.0-99.0); Mean Platelet Volume 10.4 fL (7.4-10.4); Platelet Count 175 10^3/uL (130-400); Red Blood Cell Count 3.76 10^6/uL (4.20-5.40); White Blood Cell Count 7.7 10^3/uL (4.8-10.8)
[2024-06-09 07:32] VITALS: BP 122/61
[2024-06-09 07:44] LABS: % Basophils 0.1 % (0-2); % Eosinophils 0.3 % (0-6); % Immature Granulocytes 0.4 % (0-0.5); % Lymphocytes 6.2 % (20.5-51.1); % Monocytes 1.2 % (1.7-9.3); % Neutrophils 91.8 % (42.2-75.2); Absolute Lymphocytes 0.5 10^3/uL (1.2-3.4); Absolute Monocytes 0.1 10^3/uL (0.1-0.6); Absolute Neutrophils 7.1 10^3/uL (1.4-6.5); Nucleated Red Blood Cells % 0 %
[2024-06-09 07:49] LABS: ALT (SGPT) 21 U/L (0-35); AST (SGOT) 20 U/L (14-36); Albumin 3.6 g/dl (3.5-5.0); Alkaline Phosphatase 91 U/L (38-126); Blood Urea Nitrogen 18 mg/dl (7-17); Calcium 8.7 mg/dl (8.4-10.2); Carbon Dioxide 19 mmol/L (22-30); Chloride 107 mmol/L (98-107); Estimated Creatinine Clearance 81 ml/min; Glucose 164 mg/dl (70-99); Potassium 3.8 mmol/L (3.5-5.1); Sodium 137 mmol/L (135-145); Total Bilirubin 0.4 mg/dl (0.2-1.3); Total Protein 6.1 g/dl (6.3-8.2); eGFR > 60.00
[2024-06-09] MEDS: MUCINEX 600 MG PO ×2 (08:48→20:25)
[2024-06-09] MEDS: ZITHROMAX 250 MG PO (08:48)
[2024-06-09] MEDS: ZOFRAN 4 MG IV ×2 (08:52→16:53)
--- NOTE | 2024-06-09 14:01 | W.PN.HOSP.TC ---
Today's Communication/Plan
-
see outlined plan
Assessment / Plan
Assessment / Plan
Assessment:
Asthmatic bronchitis with wheezing
Underlying hx of allergic asthma
- continue Decadron 4mg q8h IV
- continue Nebs scheduled and prn
- continue Z-jessica dosing
- continue Zyrtec
- pulm consult 06/10/24
GERD
- continue PPI
COVID-19 infection 03/15/2024
- Treated with Paxlovid
Cervical herniated disks with chronic neck pain
Thoracic outlet syndrome reported
- Continue gabapentin at 1000 mg every afternoon, Tylenol 1000 mg every afternoon
DVT prophylaxis: SCDs
Code: Full
Anticipated Discharge: > 48 hours
Subjective/Interval History
-
Date of Service: June 09, 2024
denies any new complaints at present
reports improvement in wheezing and less SOB
Objective Data
-
Labs:
Laboratory Results
06/09/24
06:52
WBC 7.7
Hgb 11.8 L
Hct 35.2 L
Plt Count 175
Sodium 137
Potassium 3.8
Chloride 107
Carbon Dioxide 19 L
BUN 18 H
Creatinine 0.8
Glucose 164 H
Calcium 8.7
Total Bilirubin 0.4
AST 20
ALT 21
Alkaline Phosphatase 91
Vital Signs:
Vital Signs
Temp Pulse Resp BP Pulse Ox
98.2 F 92 18 122/61 98
06/09/24 07:32 06/09/24 11:32 06/09/24 11:32 06/09/24 07:32 06/09/24 11:32
I&O
06/08/24 06/09/24 06/10/24
06:59 06:59 06:59
Intake Total 1040 / 1040
Balance 1040 / 1040
Physical Exam
-
General: No Apparent Distress
HEENT: Normocephalic and Atraumatic
Respiratory: Wheezes (end expiratory) and Rhonchi
Cardiac: Regular Rhythm and S1/S2
GI: Soft and Nontender
Musculoskeletal: No Edema
Neuro: AO x 3
Hematologic / Lymphatic: No Lymphadenopathy
Psych: Calm
Data Reviewed
-
Total Time Spent with Patient (in minutes): 44
Labs: Labs Reviewed by me
[2024-06-09 15:29] VITALS: BP 120/61
[2024-06-09] MEDS: PROTONIX 40 MG PO (17:20)
[2024-06-09 23:16] VITALS: BP 103/44
[2024-06-10] MEDS: DUONEB 3 ML INH ×5 (03:02→20:09)
[2024-06-10] MEDS: ZOFRAN 4 MG IV ×2 (03:31→15:24)
[2024-06-10] MEDS: DECADRON 4 MG IV ×3 (05:18→21:36)
[2024-06-10 07:36] VITALS: BP 124/65
[2024-06-10 08:03] LABS: Hematocrit 34.5 % (37.0-47.0); Hemoglobin 11.6 g/dL (12.0-16.0); Mean Corp Hgb Conc. 33.6 g/dL (33.0-37.0); Mean Corpuscular Hgb 31.8 pg (27.0-31.0); Mean Corpuscular Volume 94.5 fL (81.0-99.0); Mean Platelet Volume 10.8 fL (7.4-10.4); Platelet Count 187 10^3/uL (130-400); Red Blood Cell Count 3.65 10^6/uL (4.20-5.40); Red Cell Dist. Width 14.5 % (11.5-14.5); White Blood Cell Count 12.3 10^3/uL (4.8-10.8)
[2024-06-10] MEDS: MUCINEX 600 MG PO (08:13)
[2024-06-10] MEDS: ZITHROMAX 250 MG PO (08:13)
[2024-06-10 08:37] LABS: Blood Urea Nitrogen 21 mg/dl (7-17); Calcium 8.9 mg/dl (8.4-10.2); Carbon Dioxide 20 mmol/L (22-30); Chloride 107 mmol/L (98-107); Estimated Creatinine Clearance 72 ml/min; Glucose 137 mg/dl (70-99); Potassium 4.5 mmol/L (3.5-5.1); Sodium 137 mmol/L (135-145); eGFR > 60.00
--- NOTE | 2024-06-10 08:40 | CON.PUL ---
Consultation
Consultation Request
Date/Time Consultation Requested: 06/09/2024 - 1841
Date/Time Consultation Performed: 06/10/2024829
Requesting Provider: Dr. Betts
Performing Provider: Dr. Orourke
Reason for Consultation: Asthma exacerbation
Medical History
-
Chief Complaint: SOB
History of Present Illness:
69-year-old female with a past medical history of COPD/asthma, RUL lung nodule, kidney stones and history of diverticulitis who presents with SOB x 4 days. She was sent here from urgent care due to concern for pneumonia. For the last 4-5 days she
has been having cough, wheezing and shortness of breath. Multiple known sick contacts. In the ER she was afebrile to 98.1 �F, pulse rate 84, breathing at 22 breaths/min, BP 146/73 and saturating 98% on room air. Initial labs pertinent for
absolute eosinophils: 100, COVID-19 antigen negative, and flu A/B also negative. CXR showed no evidence for pneumonia with mild scarring/subsegmental atelectasis in the bilateral lower lobes with chronic elevation of the right hemidiaphragm. In
the ER she was given DuoNebs, 2 L of IVF with NS at 0.8%, Tylenol, Zithromax, 4 mg Decadron, and admitted to [facility]. Pulmonary service now consulted for additional management/recommendations.
When I saw the patient she was resting in bed on room air breathing comfortably. She feels much better today although still nauseous and says that the Zofran is helping. She is also coughing with clear phlegm. Currently denies chest pain, GONZALES,
abdominal pain, nausea, vomiting, fevers or chills. She says that she developed a sinus infection last month and was treated with Augmentin via urgent care. Her symptoms unfortunately persisted and she was then given a course of prednisone about 1
week or so after completing her antibiotics. She believes that she got sick from a coworker who was coughing. Of note, the patient was vomiting multiple times this past Friday (New Year's Yasmin). No diarrhea.
Of note, patient follows with Dr. Orourke in the [facility] office, last visit on 03/09/2024. She was started on prn Airsupra at the time and she was not interested in starting maintenance therapy. She has a history of allergies to mold, mildew, bees
and local anesthetics and used to get allergy shots as a teenager. She moved to [place] at age 16 and that is when her asthma symptoms began. Her last asthma exacerbation requiring hospitalization was in September 2023. She had previously gotten
thrush when she use an ICS from [facility] [place]. She mainly does not want to use a maintenance inhaler due to her fear of getting thrush again. PFTs obtained on 03/09/2024 showed mild COPD with borderline significant bronchodilator response and
normal gas exchange capacity.
PMHx: COPD/asthma, history of right upper lobe pulmonary nodule, kidney stones and history of diverticulitis
PSHx: Cholecystectomy
Past Medical History
Past Medical History: Other (Above as per HPI)
Past Surgical History: Other (Above as per HPI)
Social History
Tobacco: Non-smoker
Alcohol: None
Drug: None
Family History
Family History: CAD (Maternal grandmother) and Cancer (Father: Lung cancer; mother: Colon cancer; maternal aunt: Breast cancer)
Allergies / Home Medications
Allergies
Allergy/AdvReac Type Severity Reaction Status Date / Time
.local anesthetic Allergy Anaphylaxis Uncoded 03/15/24 13:56
Home Medications
�Medication �Instructions �Recorded �Confirmed �Last Taken �Type
acetaminophen 500 mg tablet 1,000 mg PO QPM Pain 09/08/23 06/08/24 06/07/24 History
cetirizine 10 mg tablet (Zyrtec) 10 mg PO QPM Allergies 09/08/23 06/08/24 06/07/24 History
gabapentin 300 mg capsule 300 mg PO DAILYPRN PRN neuropathy 09/08/23 06/08/24 09/08/23 History
gabapentin 400 mg capsule 400 mg PO QPM Pain 09/08/23 06/08/24 06/07/24 History
ibuprofen 200 mg capsule 600 mg PO QPM Pain 09/08/23 06/08/24 06/07/24 History
omeprazole 40 mg capsule,delayed 40 mg PO QPM Gastrointestinal Issue 09/08/23 06/08/24 06/07/24 History
release
albuterol sulfate 90 mcg/actuation 2 puff inhalation R Q4HPRN PRN SOB 09/12/23 06/08/24 Unknown Rx
aerosol inhaler #8.5 grams
albuterol sulfate 2.5 mg/3 mL 2.5 mg inhalation Q4HPRN PRN 06/08/24 06/08/24 Unknown History
(0.083 %) solution for nebulization shortness of breath or wheezing
ondansetron 4 mg disintegrating 4 mg PO DAILYPRN PRN nausea 06/08/24 06/08/24 Unknown History
tablet
Review of Systems
-
History Source: Patient
All other systems: Negative unless noted
Vitals / Labs / Diagnostic Testing
Vital Signs
Temp Pulse Resp BP Pulse Ox
98.3 F 96 18 124/65 95
06/10/24 07:36 06/10/24 07:53 06/10/24 07:53 06/10/24 07:36 06/10/24 07:53
Lab Data
06/10/24 06:55
06/10/24 06:55
Microbiology
06/08/24 15:24 Nasal Swab Influenza Types A & B (ALIN) - Final
Negative for Influenza A & B, NAAT
Negative results must be combined with clinical observations
and patient history.
Nucleic Acid Amplification test (NAAT)performed on the
[employer] platform.
Diagnostic Testing:
Physical Exam
-
HEENT: Normocephalic and Anicteric
Cardiovascular: S1/S2 and Peripheral Edema (negative)
Respiratory: Wheeze (Fannin upon expiration bilaterally), Rales (Bilaterally), Rhonchi (negative) and Non-Labored Respirations
GI: Soft, Non Distended, Non Tender and Normal Bowel Sounds
Neurology: AO x 3 and Tremors (negative)
Skin: Warm and Dry
General: Respiratory Distress (negative), Comfortable, Fever (negative) and Chills (negative)
Assessment
-
Assessment: 69-year-old female with a past medical history of COPD/asthma, RUL lung nodule, kidney stones and history of diverticulitis who presents with SOB x 4 days. She was sent here from urgent care due to concern for pneumonia. For the last
4-5 days she has been having cough, wheezing and shortness of breath. Multiple known sick contacts. In the ER she was afebrile to 98.1 �F, pulse rate 84, breathing at 22 breaths/min, BP 146/73 and saturating 98% on room air. Initial labs
pertinent for absolute eosinophils: 100, COVID-19 antigen negative, and flu A/B also negative. CXR showed no evidence for pneumonia with mild scarring/subsegmental atelectasis in the bilateral lower lobes with chronic elevation of the right
hemidiaphragm. In the ER she was given DuoNebs, 2 L of IVF with NS at 0.8%, Tylenol, Zithromax, 4 mg Decadron, and admitted to [facility]. Pulmonary service now consulted for additional management/recommendations.
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
Impression:
#Acute COPD/asthma exacerbation
#Recent sinus infection which persisted s/p Augmentin, and she required a course of prednisone
#Subacute cough in setting of recent sinus infection
#Nausea with recent vomiting on 06/08/2024
#History of right upper lobe branching pulmonary nodule likely due to mucoid impaction however it is persistent since September 2023
#Hx of thrush s/p LABA/ICS maintenance inhaler with Advair 100mcg
#History of kidney stones
#History of diverticulitis
Plan:
- Continue with systemic steroids and wean as tolerated�currently on Decadron 4 mg IV q8hr --> start to wean down to 4mg IV q12hr tomorrow; hopefully can start OCS taper this Friday
- Maintain euglycemia while on high-dose steroids with goal BG >100 and <180
- Scheduled DuoNeb QID with prn doses in between for breakthrough symptoms
- Maintain SpO2 88-95% with supplemental O2 as needed
- Zithromax mainly for its anti-inflammatory properties
- Mucolytics with mucinex
- Zyrtec (home med)
- She should be started on a LABA/ICS at this time, however she has a Hx of thrush which occurred after she started Advair 100mcg after a previous asthma flare in September 2023 --> will DC home with a LABA/LAMA (i.e. Stiolto vs Anoro), and also give
her prn ICS (i.e., Flovent) for when she feels a flare up coming up; rec'd outpatient follow up for symptom monitoring/management
- Antiemetics prn; monitor QTc (472ms on 06/08/2024)
- Incentive spirometer encouraged q1hr while awake
- Replete electrolytes with K>4, Mg>2
- Maintain euglycemia with goal BG >100 and <180
- DVT ppx: Start LMWH
Pulmonary service will continue to follow along. She will continue to follow-up with Dr. Orourke in the [facility] office (last visit on 03/09/2024) � next visit on 07/15/2024 at 4 PM. She was advised to keep this appointment.
Data:
CXR 06/08/2024:
1. No radiographic evidence for pneumonia.
2. Mild chronic elevation of the right hemidiaphragm.
3. Mild scarring/subsegmental atelectasis in both lower lungs.
Prior [facility] data:
� Radiology:
CTA of the chest 09/08/2023:�Branching nodular opacity within the posterior right upper lobe measuring up to 8 mm.� Also bands of atelectasis within the lingula and both lower lobes.� No pleural effusion or pneumothorax.� No acute PE seen..�
LABS:
������ COMMENTS:�Absolute eosinophils: 200 (09/08/2023).�
PFT:
������ COMMENTS:�Full PFT 03/09/2024: Mild COPD with borderline significant bronchodilator response with no evidence of restriction and normal gas exchange capacity.� Data: FEV1/FVC: 59/70%, increasing to 60/79% with bronchodilator.� Post-FEV1: 2.23
L / 81% with +10% change with bronchodilator.� Post-FVC: 3.72 L / 103%, with a +8% change with bronchodilator.� FEF 25-75%: 35%, increased to 43% with bronchodilator (+21% change).� T%; VC: 102%; RV: 76%; DLco: 81%; DLco/VA: 88%.�
Total time spent today was 56 minutes for this encounter. Time includes reviewing laboratory test/imaging results, reviewing pertinent medical records, obtaining and reviewing medical history, performing an appropriate exam, ordering medications,
tests and procedures. Time also includes documentation of this encounter, coordinating patient care and communicating with other healthcare professionals. Total time does not include separately billed tests performed on this date of service.
--- NOTE | 2024-06-10 09:09 | W.PN.HOSP.TC ---
Today's Communication/Plan
-
pulm consult
continue current plan as outlined
Assessment / Plan
Assessment / Plan
Assessment:
Asthmatic bronchitis with wheezing
Underlying hx of allergic asthma
- continue Decadron 4mg q8h IV - continue this dose for now
- continue Nebs scheduled and prn
- continue Z-jessica dosing
- continue Zyrtec
- pulm consult today
GERD
- continue PPI
COVID-19 infection 03/15/2024
- Treated with Paxlovid
Cervical herniated disks with chronic neck pain
Thoracic outlet syndrome reported
- Continue gabapentin at 1000 mg every afternoon, Tylenol 1000 mg every afternoon
DVT prophylaxis: SCDs
Code: Full
Anticipated Discharge: 24 - 48 hours
Subjective/Interval History
-
Date of Service: June 10, 2024
reports ongoing wheezing
Objective Data
-
Labs:
Laboratory Results
06/10/24
06:55
WBC 12.3 H
Hgb 11.6 L
Hct 34.5 L
Plt Count 187
Sodium 137
Potassium 4.5
Chloride 107
Carbon Dioxide 20 L
BUN 21 H
Creatinine 0.9
Glucose 137 H
Calcium 8.9
Vital Signs:
Vital Signs
Temp Pulse Resp BP Pulse Ox
98.3 F 96 18 124/65 95
06/10/24 07:36 06/10/24 07:53 06/10/24 07:53 06/10/24 07:36 06/10/24 07:53
I&O
06/09/24 06/10/24 06/11/24
06:59 06:59 06:59
Intake Total 1040 / 1040 1200 / 1200
Balance 1040 / 1040 1200 / 1200
Physical Exam
-
General: No Apparent Distress
HEENT: Normocephalic and Atraumatic
Respiratory: Wheezes and Decreased Breath Sounds; Negative Rales
Cardiac: Regular Rhythm and S1/S2
GI: Nondistended
Genito-urinary: No Costovertebral Tender
Musculoskeletal: No Edema
Neuro: AO x 3
Hematologic / Lymphatic: No Lymphadenopathy
Psych: Calm
Data Reviewed
-
Total Time Spent with Patient (in minutes): 45
Labs: Labs Reviewed by me
--- NOTE | 2024-06-10 12:02 | CM ---
CM reviewed medical records. Patient confirmed demographics. Patient lives independently. Patient does have a history of VN, but is currently not on service. Patient does not have a history of SNF or DME. Patient uses [facility] for medication
services. Patient is active with his PCP>
PLAN: Home no needs.
[2024-06-10 15:14] VITALS: BP 115/53
[2024-06-10] MEDS: TYLENOL 1000 MG PO (17:35)
[2024-06-10] MEDS: PROTONIX 40 MG PO (17:35)
[2024-06-10] MEDS: MOTRIN 600 MG PO (17:35)
[2024-06-10] MEDS: NEURONTIN 400 MG PO (17:35)
[2024-06-10] MEDS: ZYRTEC 10 MG PO (17:36)
[2024-06-10] MEDS: MUCINEX 1200 MG PO (21:38)
[2024-06-10 23:05] VITALS: BP 120/61
--- NOTE | 2024-06-10 23:09 | PTCARENOTE ---
Pt refused SubQ lovenox despite education.
[2024-06-11 07:29] LABS: Blood Urea Nitrogen 23 mg/dl (7-17); Calcium 9.1 mg/dl (8.4-10.2); Carbon Dioxide 21 mmol/L (22-30); Chloride 106 mmol/L (98-107); Estimated Creatinine Clearance 72 ml/min; Glucose 114 mg/dl (70-99); Potassium 4.5 mmol/L (3.5-5.1); Sodium 137 mmol/L (135-145); eGFR > 60.00
[2024-06-11] MEDS: DUONEB 3 ML INH ×2 (07:33→12:25)
[2024-06-11 07:46] LABS: Hematocrit 34.6 % (37.0-47.0); Hemoglobin 11.9 g/dL (12.0-16.0); Mean Corp Hgb Conc. 34.4 g/dL (33.0-37.0); Mean Corpuscular Hgb 34.3 pg (27.0-31.0); Mean Corpuscular Volume 99.7 fL (81.0-99.0); Mean Platelet Volume 10.7 fL (7.4-10.4); Platelet Count 219 10^3/uL (130-400); Red Blood Cell Count 3.47 10^6/uL (4.20-5.40); Red Cell Dist. Width 15.7 % (11.5-14.5); White Blood Cell Count 11.3 10^3/uL (4.8-10.8)
[2024-06-11 08:00] VITALS: BP 154/84
[2024-06-11] MEDS: ZITHROMAX 250 MG PO (08:02)
[2024-06-11] MEDS: DECADRON 4 MG IV (08:02)
[2024-06-11] MEDS: MUCINEX 1200 MG PO (08:02)
--- NOTE | 2024-06-11 08:50 | W.PN.PUL3 ---
Today's Communication / Plan
-
Patient is stable for discharge home with either Stiolto 2.5mcg/actuation or Anoro.
DC home on prednisone taper starting at 50mg and reduce by 10mg every 4th day until off
Discharge home on Tessalon Perles 200mg TID prn for symptoms of cough
DC home on nystatin swish and swallow as she feels like she is developing thrush. Would give this nystatin for 14 days.
She can continue her nebulizers at home for as needed/breakthrough symptoms.
She will follow-up with Dr. Orourke in the office and will call if any questions or concerns.
Assessment
-
Assessment: 69-year-old female with a past medical history of COPD/asthma, RUL lung nodule, kidney stones and history of diverticulitis who presents with SOB x 4 days. She was sent here from urgent care due to concern for pneumonia. For the last
4-5 days she has been having cough, wheezing and shortness of breath. Multiple known sick contacts. In the ER she was afebrile to 98.1 �F, pulse rate 84, breathing at 22 breaths/min, BP 146/73 and saturating 98% on room air. Initial labs
pertinent for absolute eosinophils: 100, COVID-19 antigen negative, and flu A/B also negative. CXR showed no evidence for pneumonia with mild scarring/subsegmental atelectasis in the bilateral lower lobes with chronic elevation of the right
hemidiaphragm. In the ER she was given DuoNebs, 2 L of IVF with NS at 0.8%, Tylenol, Zithromax, 4 mg Decadron, and admitted to [facility]. Pulmonary service now consulted for additional management/recommendations.
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
Impression:
#Acute COPD/asthma exacerbation - improved
#Recent sinus infection which persisted s/p Augmentin, and she required a course of prednisone
#Subacute cough in setting of recent sinus infection
#Nausea with recent vomiting on 06/08/2024
#History of right upper lobe branching pulmonary nodule likely due to mucoid impaction however it is persistent since September 2023
#Hx of thrush s/p LABA/ICS maintenance inhaler with Advair 100mcg
#History of kidney stones
#History of diverticulitis
Plan:
- Continue with systemic steroids and wean as tolerated�currently on Decadron 4 mg IV q8hr --> today she was weaed down to 4mg IV q12hr --> ok to DC home with prednisone taper starting at 50mg and reduce by 10mg every 4th day until off
- Maintain euglycemia while on steroids with goal BG >100 and <180
- While hospitalized, continue scheduled DuoNeb QID with prn doses in between for breakthrough symptoms
- Maintain SpO2 88-95% with supplemental O2 as needed
- Zithromax mainly for its anti-inflammatory properties
- Mucolytics with mucinex
- Zyrtec (home med)
- She should be started on a LABA/ICS at this time, however she has a Hx of thrush which occurred after she started Advair 100mcg after a previous asthma flare in September 2023 --> will DC home with a LABA/LAMA (i.e. Stiolto vs Anoro), and also give
her prn ICS (i.e., Flovent) for when she feels a flare up coming up; rec'd outpatient follow up for symptom monitoring/management
- Antiemetics prn; monitor QTc (472ms on 06/08/2024)
- Incentive spirometer encouraged q1hr while awake
- Replete electrolytes with K>4, Mg>2
- Maintain euglycemia with goal BG >100 and <180
- DVT ppx: LMWH
Patient is stable for discharge home with either Stiolto 2.5mcg/actuation or Anoro. Also give prednisone taper as noted above. Would also discharge home on Tessalon Perles 200mg TID prn for symptoms of cough, as well as nystatin swish and swallow
as she feels like she is developing thrush. Would give this nystatin for 14 days. She can continue her nebulizers at home for as needed/breakthrough symptoms.
She will continue to follow-up with Dr. Orourke in the [facility] office (last visit on 03/09/2024) � next visit on 07/15/2024 at 4 PM. She was advised to keep this appointment.
Data:
CXR 06/08/2024:
1. No radiographic evidence for pneumonia.
2. Mild chronic elevation of the right hemidiaphragm.
3. Mild scarring/subsegmental atelectasis in both lower lungs.
Prior [facility] data:
� Radiology:
CTA of the chest 09/08/2023:�Branching nodular opacity within the posterior right upper lobe measuring up to 8 mm.� Also bands of atelectasis within the lingula and both lower lobes.� No pleural effusion or pneumothorax.� No acute PE seen..�
LABS:
������ COMMENTS:�Absolute eosinophils: 200 (09/08/2023).�
PFT:
������ COMMENTS:�Full PFT 03/09/2024: Mild COPD with borderline significant bronchodilator response with no evidence of restriction and normal gas exchange capacity.� Data: FEV1/FVC: 59/70%, increasing to 60/79% with bronchodilator.� Post-FEV1: 2.23
L / 81% with +10% change with bronchodilator.� Post-FVC: 3.72 L / 103%, with a +8% change with bronchodilator.� FEF 25-75%: 35%, increased to 43% with bronchodilator (+21% change).� T%; VC: 102%; RV: 76%; DLco: 81%; DLco/VA: 88%.�
Total time spent today was 38 minutes for this encounter. Time includes reviewing laboratory test/imaging results, reviewing pertinent medical records, obtaining and reviewing medical history, performing an appropriate exam, ordering medications,
tests and procedures. Time also includes documentation of this encounter, coordinating patient care and communicating with other healthcare professionals. Total time does not include separately billed tests performed on this date of service.
Subjective Data
-
Date of Service:
Date of Service: June 11, 2024
Chief Complaint: Pulmonary Follow Up
Subjective:
Patient seen and evaluated today at bedside. Currently on room air breathing comfortably - saturating 97%. Walking around the unit and has minimal shortness of breath with wheezing reported at the end of her walk. She feels comfortable enough to
go home. Denies chest pain, GONZALES, Jadon pain, nausea, fevers or chills.
Review of Systems
General: Other (Negative unless mentioned above)
Objective Data
Data Reviewed
Vital Signs / I&O / Oxygen:
Vital Signs
Temp Pulse Resp BP Pulse Ox
98.3 F 76 20 154/84 95
06/11/24 08:00 06/11/24 08:00 06/11/24 08:00 06/11/24 08:00 06/11/24 08:00
Intake and Output
06/10/24 06/11/24 06/12/24
06:59 06:59 06:59
Intake Total 1200 / 1200 720 / 720
Balance 1200 / 1200 720 / 720
SaO2 95
Physical Exam
General: Respiratory Distress (negative), Comfortable, Chills (negative) and Sweats (negative)
HEENT: Normocephalic and Anicteric
Cardiovascular: S1-S2 and Peripheral Edema (negative)
Respiratory: Wheeze (negative), Crackles (R-base), Rhonchi (negative), Non-Labored Respirations and Stridor (negative)
GI: Soft, Non Distended, Non Tender and Normal Bowel Sounds
Neurology: AO x 3 and Tremors (negative)
Skin: Warm, Dry, Jaundice (negative) and Rash (negative)
Labs/Micro/Reports
Lab Data
06/11/24 06:46
06/11/24 06:46
Microbiology
06/08/24 15:24 Nasal Swab Influenza Types A & B (ALIN) - Final
Negative for Influenza A & B, NAAT
Negative results must be combined with clinical observations
and patient history.
Nucleic Acid Amplification test (NAAT)performed on the
[employer] platform.
--- NOTE | 2024-06-11 10:22 | W.PN.HOSP.TC ---
Today's Communication/Plan
-
continue current plan of care as outlined and follow pulm recs
Assessment / Plan
Assessment / Plan
Assessment:
Asthmatic bronchitis with wheezing
Underlying hx of allergic asthma
- continue Decadron 4mg q12h IV per pulmonary
- continue Nebs scheduled and prn
- continue Z-jessica dosing
- continue Zyrtec
- outpatient plan is for follow up and also start LABA/LAMA with prn ICS per Pulmonary.
GERD
- continue PPI
COVID-19 infection 03/15/2024
- Treated with Paxlovid
Cervical herniated disks with chronic neck pain
Thoracic outlet syndrome reported
- Continue gabapentin at 1000 mg every afternoon, Tylenol 1000 mg every afternoon
DVT prophylaxis: SCDs
Code: Full
Anticipated Discharge: 24 - 48 hours
Subjective/Interval History
-
Date of Service: June 11, 2024
breathing marginally improving, feels less winded, able to sit up on side of bed easier. less wheeze
Objective Data
-
Labs:
Laboratory Results
06/11/24
06:46
WBC 11.3 H
Hgb 11.9 L
Hct 34.6 L
Plt Count 219
Sodium 137
Potassium 4.5
Chloride 106
Carbon Dioxide 21 L
BUN 23 H
Creatinine 0.9
Glucose 114 H
Calcium 9.1
Vital Signs:
Vital Signs
Temp Pulse Resp BP Pulse Ox
98.3 F 76 20 154/84 95
06/11/24 08:00 06/11/24 08:00 06/11/24 08:00 06/11/24 08:00 06/11/24 08:00
I&O
06/10/24 06/11/24 06/12/24
06:59 06:59 06:59
Intake Total 1200 / 1200 720 / 720
Balance 1200 / 1200 720 / 720
Physical Exam
-
General: No Apparent Distress
HEENT: Normocephalic and Atraumatic
Respiratory: Wheezes
Cardiac: Regular Rhythm and S1/S2
GI: Soft and Nontender
Musculoskeletal: No Edema
Neuro: AO x 3
Hematologic / Lymphatic: No Lymphadenopathy
Psych: Calm
Data Reviewed
-
Total Time Spent with Patient (in minutes): 45
Labs: Labs Reviewed by me
--- NOTE | 2024-06-11 10:24 | CM ---
CM reviewed chart, patient seen bedside. Patient denies any needs at this time, hopeful for discharge tomorrow. CM will continue to follow for all discharge planning needs.
Plan; home no needs.
--- NOTE | 2024-06-11 12:39 | W.DS.TRANS ---
DC Summary - [employer]
-
Discharge Instructions:
Discharge Diagnosis/Procedures asthmatic bronchitis with wheezing
Diet Regular
Activity As tolerated
Instructions:
Stand-Alone Forms:
Changes to Home Medications: No
Discharge Medications:
DC Medications w/original date entered in [employer]
acetaminophen 500 mg tablet 1,000 mg PO QPM Pain 09/08/23
cetirizine 10 mg tablet (Zyrtec) 10 mg PO QPM Allergies 09/08/23
gabapentin 300 mg capsule 300 mg PO DAILYPRN PRN neuropathy 09/08/23
gabapentin 400 mg capsule 400 mg PO QPM Pain 09/08/23
ibuprofen 200 mg capsule 600 mg PO QPM Pain 09/08/23
omeprazole 40 mg capsule,delayed release 40 mg PO QPM Gastrointestinal Issue 09/08/23
ondansetron 4 mg disintegrating tablet 4 mg PO DAILYPRN PRN nausea 06/08/24
albuterol sulfate 2.5 mg/3 mL (0.083 %) solution for nebulization 2.5 mg (3 mL) inhalation Q4HPRN PRN shortness of breath or wheezing #75 mL 06/11/24
albuterol sulfate 90 mcg/actuation aerosol inhaler 2 puff inhalation R Q4HPRN PRN SOB #8.5 grams 06/11/24
azithromycin 250 mg tablet 250 mg PO DAILY #2 tabs 06/11/24
benzonatate 100 mg capsule 100 mg PO TID PRN Cough #30 caps 06/11/24
guaifenesin 600 mg tablet, extended release 12 hr 1,200 mg (2 x 600 mg) PO Q12 #30 tabs 06/11/24
nystatin 100,000 unit/mL oral suspension 5 ml PO QID 14 days #473 mL 06/11/24
prednisone 10 mg tablet 10 mg PO DIRECTED #60 tabs 06/11/24
umeclidinium 62.5 mcg-vilanterol 25 mcg/actuation powdr for inhalation (Anoro Ellipta) 1 inh inhalation DAILY #60 ea 06/11/24
Home Medication Changes
Pending Results: No
Total time spent discharging patient (in min): 41
[2024-06-11 15:15] VITALS: BP 124/62
== END 2024-06-11 15:25 | disposition home or self-care (01) | DRG 191 ==
LOC: 1 ACUTE 15:55
PROVIDERS: Clinical Nurse Specialist Family Health; Registered Nurse; ADMITTING PHYSICIAN Hospitalist; ATTENDING PHYSICIAN Internal Medicine; CONSULT PHYSICIAN Internal Medicine Critical Care Medicine; EMERGENCY PHYSICIAN Emergency Medicine; FAMILY PHYSICIAN Internal Medicine
DX: J44.1 Chronic obstructive pulmonary disease with (acute) exacerbation (principal); J45.901 Unspecified asthma with (acute) exacerbation; K21.9 Gastro-esophageal reflux disease without esophagitis; G89.29 Other chronic pain; M50.20 Other cervical disc displacement, unspecified cervical region; J44.0 Chronic obstructive pulmonary disease with (acute) lower respiratory infection; J20.9 Acute bronchitis, unspecified; R91.1 Solitary pulmonary nodule; N20.0 Calculus of kidney; Z86.16 Personal history of COVID-19
CPT/HCPCS: 71046; 80048; 80053; 85025; 85027; 87502; 87811; 93005; 94640; 94644; 94760; 96361; 96374; 96375; 99285